=== PATIENT | male | born 1985 | race Caucasian/White ===

== ENCOUNTER 2024-06-07 08:48 | Emergency (ER) | payer OTHER, SELFPAY ==
[2024-06-07 08:51] VITALS: BP 104/74
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
== END 2024-06-07 10:03 | disposition home or self-care (01) ==
LOC: EMR 08:48
PROVIDERS: EMERGENCY PHYSICIAN Student in an Organized Health Care Education/Training Program; FAMILY PHYSICIAN Family Medicine
DX: S93.602A Unspecified sprain of left foot, initial encounter (principal); W23.2XXA Caught, crushed, jammed or pinched between a moving and stationary object, initial encounter
CPT/HCPCS: 99283; 73630